=== PATIENT | male | born 1990 | race Caucasian/White ===

== ENCOUNTER 2023-04-24 16:05 | Outpatient (AMB) | payer OTHER, SELFPAY ==
--- OUTSIDE RECORDS SUMMARY | 2023-04-24 16:07 | XMS_ITS | Continuity of Care Document ---
Author Name Unknown Organization [facility] Address [address] [place] [address]- Care Team Providers Care Client Solutions Specialist Name Role Phone Damien Reyes Primary Care Physician [phone] En[id number] Date(s): 04/07/21 - 05/07/21 [facility] [address] [place] [address]- Attending Physician: Addie Guerrero Admitting Physician: Addie Guerrero Referring Physician: AdmtrAddie Allergies, Adverse Reactions, Alerts Substance Reaction Severity Status NKA Active Immunizations Given and Recorded Vaccine Date Status Refusal Reason pneumococcal 23-valent vaccine 11/28/10 Given Medications ALPRAZolam 1 mg oral tablet 1 tablet = 1 mg, By Mouth, 2 times a day, 0 Refills, Maintenance, 01/09/17 6:28:13, Tablet Start Date: 01/09/17 Status: Ordered gabapentin 300 mg oral capsule 300 mg, 1, capsule, By Mouth, 3 times a day, # 21 capsule, Refills 0, Tot. Refills 0, Maintenance, 03/18/21 10:59:00 EDT, Route to Pharmacy Electronically, [facility], Partial fill uponpatient request if the prescription is for a schedu... Start Date: 03/18/21 Stop Date: 03/25/21 Status: Ordered Methadone = 83 mg, By Mouth, 0 Refills, Maintenance, 03/19/21 12:22:00 EDT, Partial fill upon patient requestif the prescription is for a schedule II opioid drug. Start Date: 03/19/21 Status: Ordered oxyCODONE 15 mg oral tablet 1 tablet = 15 mg, By Mouth, Every 6 hours, 0 Refills, Maintenance, 03/19/21 12:21:00 EDT, Partial fill upon patient request if the prescription is for a schedule II opioid drug. Start Date: 03/19/21 Status: Ordered Tums 500 = 1,250 mg, 3 times a day, PRN Indigestion, 0 Refills, Maintenance, 06/17/15 12:57:24 Start Date: 06/17/15 Status: Ordered Wheeled walker with a left platform attachemnt Wheeled walker with a left platform attachemnt, See Instructions, # 1 each, Refills 0, Tot. Refills0, Maintenance, wheeled walker with a left platform attachemnt, 03/18/21 10:42:00 EDT, Supply Start Date: 03/18/21 Status: Ordered Problem List Condition Effective Dates Status Health Status Inform ant Chronic pain(Confirmed) Active Depressive disorder(Confirmed) Active Prescription drug discontinued(Confirmed) Active History of surgery(Confirmed) 1 Active History of surgery(Confirmed) 2 Active Hip pain(Confirmed) 3 Active History of heroin use(Confirmed) Active Depression with anxiety(Confirmed) Active Nicotine use disorder(Confirmed) Active Lower extremity pain(Confirmed) Active 1PROCEDURE DATE: 11/26/2010 PREOPERATIVE DIAGNOSIS: Left femoral shaft fracture. POSTOPERATIVE DIAGNOSIS: Left femoral shaft fracture. PROCEDURE PERFORMED: Intramedullary nailing, left femoral shaft fracture. SURGEON: Mary Gamez M.D 2PROCEDURE DATE: 11/28/2010 PREOPERATIVE DIAGNOSIS: Right acetabular fracture, posterior wall. POSTOPERATIVE DIAGNOSIS: Right acetabular fracture, posterior wall. PROCEDURE PERFORMED: Open reduction and internal fixation, right acetabular posterior wall fracture. SURGEON: Mary Gamez M.D. 3Right-sided Social History Social History Type Response Smoking Status Current every day sm rejier; Type: Cigarettes; Tobacco use times per day: 1 PPD; entered on: 07/12/13 Sex
--- OUTSIDE RECORDS SUMMARY | 2023-04-24 16:07 | XMS_ITS | Continuity of Care Document ---
Author Name Unknown Organization [facility] Address [address] [place] [address]- Care Team Providers Care School Secretary Name Role Phone Damien Reyes Primary Care Physician [facility] Date(s): 09/20/19 - 09/20/[address] [address]- [facility] [place] [facility] Discharge Disposition: A-D/C Home Attending Physician: Brett Lainez DO Admitting Physician: Brett Lainez DO Referring Physician: Not on Staff, Referring MD Allergies, Adverse Reactions, Alerts Substance Reaction Severity Status NKA Active Immunizations Given and Recorded Vaccine Date Status Refusal Reason pneumococcal 23-valent vaccine 11/28/10 Given Medications Advil 200 mg oral tablet 1 tablet = 200 mg, By Mouth, Every 6 hours, 0 Refills, Maintenance, 06/17/15 12:57:35 Start Date: 06/17/15 Status: Ordered ALPRAZolam 1 mg oral tablet 1 tablet = 1 mg, By Mouth, 2 times a day, 0 Refills, Maintenance, 01/09/17 6:28:13, Tablet Start Date: 01/09/17 Status: Ordered clonazePAM 1 mg oral tablet 1 tablet = 1 mg, By Mouth, 4 times a day, PRN Anxiety, 0 Refills, Maintenance, 06/01/15 9:57:01 Start Date: 06/01/15 Status: Ordered cloNIDine 0.1 mg oral tablet 0.1 mg, By Mouth, 4 times a day, # 30 tablet, Refills 0, Maintenance, 01/09/17 6:32:04 Start Date: 01/09/17 Status: Ordered cloNIDine 0.1 mg/12 hr oral tablet, extended release 1 tablet = 0.1 mg, By Mouth, Daily at bedtime, 0 Refills, Maintenance, 01/09/17 6:28:22 Start Date: 01/09/17 Status: Ordered Colace sodium 100 mg oral capsule 100 mg, 1, capsule, By Mouth, 2 times a day, PRN, # 4 capsule, Refills 0, Tot. Refills 0, Maintenance, for constipation, 01/09/17 10:19:01, Print Requisition Start Date: 01/09/17 Stop Date: 01/11/17 Status: Ordered gabapentin 300 mg oral capsule 1 capsule = 300 mg, By Mouth, 3 times a day, 0 Refills, Maintenance, 06/02/15 11:13:44 Start Date: 06/02/15 Status: Ordered ibuprofen 400 mg oral tablet 1 tablet = 400 mg, By Mouth, Every 4 hours, PRN for pain, # 60 tablet, 0 Refills, Maintenance, 05/10/15 1:30:03, Tablet Start Date: 05/10/15 Status: Ordered Paxil 40 mg oral tablet 1 tablet = 40 mg, By Mouth, Daily, # 30 tablet, 0 Refills, Maintenance, 06/01/15 9:58:12, Tablet Start Date: 06/01/15 Status: Ordered Tums 500 = 1,250 mg, 3 times a day, PRN Indigestion, 0 Refills, Maintenance, 06/17/15 12:57:24 Start Date: 06/17/15 Status: Ordered Zofran 4 mg oral tablet 1 tablet = 4 mg, By Mouth, Every 8 hours, PRN Nausea & Vomiting, # 10 tablet, 0 Refills, Maintenance, 01/09/17 10:18:33, Tablet Start Date: 01/09/17 Status: Ordered Problem List Condition Effective Dates [...] wall fracture. SURGEON: Mary Gamez M.D. 3Right-sided Vital Signs Most recent to oldest [Reference Range]: 1 2 3 Oxygen Saturation [94-100 %] 100 % (09/20/19 9:45 AM) 100 % (09/20/19 6:27 AM) Pulse Rate [55-90 bpm] 116 bpm *H* (09/20/19 9:45 AM) 115 bpm *H* (09/20/19 6:27 AM) Blood Pressure [90-138/55-84 mm Hg] 177/100mm Hg *H* (09/20/19 9:45 AM) 154/85mm Hg *H* (09/20/19 6:27 AM) Respiratory Rate [16-30 br/min] 22 br/min (09/20/19 9:45 AM) 22 br/min (09/20/19 9:43 AM) 26 br/min (09/20/19 8:50 AM) Temperature [96.8-100.4 DegF] 97.6 DegF (09/20/19 6:27 AM) Mode of Delivery (Oxygen) Room air (09/20/19 9:45 AM) Room air (09/20/19 6:27 AM) Blood pressure sites Arm, right (09/20/19 9:45 AM) Arm, left (09/20/19 6:27 AM) Temperature Route Oral (09/20/19 6:27 AM) Social History Social History Type Response Smoking Status Current every day cornelio zavaleta; Type: Cigarettes; Tobacco use times per day: 1 PPD; entered on: 07/12/13 Sex
--- OUTSIDE RECORDS SUMMARY | 2023-04-24 16:07 | XMS_ITS | Continuity of Care Document ---
Author Name Unknown Organization [facility] laura Address [address] [place] [address] [address] [place] [address]- Care Team Providers Care Manager Financial Services Name Role Phone Damien Reyes Primary Care Physician [facility] Date(s): 04/15/21 - 04/22/21 [facility] [address] [place] [address]- Attending Physician: Yrn Mack MD Allergies, Adverse Reactions, Alerts Substance Reaction [...] 03/18/21 10:59:00 EDT, Route to Pharmacy Electronically, [facility], Partial fill uponpatient request if the [...] Most recent to oldest [Reference Range]: 1 Height 170 cm (04/15/21 11:03 AM) Weight 76 kg (04/15/21 11:03 AM) Body Mass Index [18.5-24.99] 26.3 *H* (04/15/21 11:03 AM) Temperature [96.8-100.4 DegF] 98.4 DegF (04/15/21 11:03 AM) Social History Social History Type Response Smoking Status Current every day cornelio zavaleta; Type: Cigarettes; Tobacco use times per day: 1 PPD; entered on: 07/12/13 Sex
--- OUTSIDE RECORDS SUMMARY | 2023-04-24 16:07 | XMS_ITS | Continuity of Care Document ---
Author Name Unknown Organization [facility] Address [address] [place] [address]- Care Team Providers Care Bakery Worker Name Role Phone Winston Hernandez MD Primary Care Physician [phone] [place] [facility] 11/26/21 - 11/26/[address] [address]- Encounter Diagnosis Hypercalcemia(Final) - 11/26/21 Dehydration(Final) - 11/26/21 Discharge Disposition: A-D/C Home Attending Physician: Venkata Pena MD Admitting Physician: Venkata Pena MD Referring Physician: Not on Staff, Referring MD Allergies, Adverse Reactions, Alerts No Known Allergies Immunizations Given and Recorded Vaccine Date Status [...] 03/18/21 10:59:00 EDT, Route to Pharmacy Electronically, [facility], Partial fill uponpatient request [...] 3 Oxygen Saturation [94-100 %] 100 % (11/26/21 6:17 PM) 100 % (11/26/21 4:51 PM) 100 % (11/26/21 3:25 PM) Pulse Rate [55-90 bpm] 78 bpm (11/26/21 6:17 PM) 80 bpm (11/26/21 4:51 PM) 85 bpm (11/26/21 3:25 PM) Blood Pressure [90-138/55-84 mm Hg] 130/70mm Hg (11/26/21 6:17 PM) 125/63mm Hg (11/26/21 4:51 PM) 133/63mm Hg (11/26/21 3:31 PM) Respiratory Rate [16-30 br/min] 18 br/min (11/26/21 6:17 PM) 18 br/min (11/26/21 4:51 PM) 18 br/min (11/26/21 3:25 PM) Temperature [96.8-100.4 DegF] 97.8 DegF (11/26/21 3:31 PM) Mode of Delivery (Oxygen) Room air (11/26/21 6:17 PM) Room air (11/26/21 4:51 PM) Room air (11/26/21 3:25 PM) Blood pressure sites Arm, right (11/26/21 6:17 PM) Arm, right (11/26/21 4:51 PM) Arm, right (11/26/21 3:31 PM) Temperature Route Oral (11/26/21 3:31 PM) Social History Social History Type Response Smoking Status Current every day cornelio zavaleta; Type: Cigarettes; Tobacco use times per day: 1 PPD; entered on: 07/12/13 Sex
--- OUTSIDE RECORDS SUMMARY | 2023-04-24 16:07 | XMS_ITS | Continuity of Care Document ---
Author Name Unknown Organization [facility] Address [address] [place] [address]- Care Team Providers Care Clerk Rating Name Role Phone Damien Reyes Primary Care Physician [phone] Encounter [facility] Date(s): 07/06/22 - 08/05/22 [facility] [address] [place] [address]- Attending Physician: Addie Guerrero Admitting Physician: Addie Guerrero Referring Physician: Admtr, Cecilio8 Allergies, Adverse Reactions, Alerts No Known Allergies [...] 03/18/21 10:59:00 EDT, Route to Pharmacy Electronically, [facility], Partial fill uponpatient request if the [...] Date: 03/18/21 Status: Ordered Problem List Condition Confirmation Course Effective Dates Status Health St atus Informant Chronic pain Confirmed Active Depressive disorder Confirmed Active Prescription drug discontinued Confirmed Active History of surgery 1 Confirmed Active History of surgery 2 Confirmed Active Hip pain 3 Confirmed Active History of heroin use Confirmed Active Depression with anxiety Confirmed Active Nicotine use disorder Confirmed Active Lower extremity pain Confirmed Active 1PROCEDURE DATE: 11/26/2010 PREOPERATIVE DIAGNOSIS: Left [...] Response Smoking Status Current every day sm oker; Type: Cigarettes; Tobacco use times per day: 1 PPD; entered on: 07/12/13 Sex Patient Care team information Care Team Personnel Name: Damien Reyes Position: Reference Physician Member Role: PCP Address: Address: [address] [place] [address]- Care Team Related Persons Name: GUILLE RODRIGUEZ Address: home [address] [place] [address] Name: DESTINEE VARGAS Address: home [address] [place] [address] Name: DAVIDA VARGAS Address: home [address] [address]
--- OUTSIDE RECORDS SUMMARY | 2023-04-24 16:07 | XMS_ITS | Continuity of Care Document ---
Author Name Unknown Organization [facility] Arsal[facility] laura Address [address] [place] [address] [address] [place] [address]- Care Team Providers Care Manager Of Selection And Assessment Name Role Phone Damien Reyes Primary Care Physician [phone] [facility]counter [facility] Date(s): 04/15/21 - 06/12/21 [facility] [address] [place], [place] [address] Attending Physician: Padmini Jack Allergies, Adverse Reactions, Alerts Substance Reaction Severity [...]
--- OUTSIDE RECORDS SUMMARY | 2023-04-24 16:07 | XMS_ITS | Continuity of Care Document ---
Author Name Unknown Organization [facility] laura Address [address] [place] [address] [address] [place] [address]- Care Team Providers Care Body Hanger Name Role Phone Damien Reyes Primary Care Physician [facility]counter [facility] Date(s): 03/18/21 - 05/05/21 [facility] [address] [place], [place] [address] Attending Physician: Yrn Mack MD Referring Physician: Damien Reyes Allergies, Adverse Reactions, Alerts Substance Reaction Severity [...] 03/18/21 10:59:00 EDT, Route to Pharmacy Electronically, [facility], Partial fill uponpatient request [...]
--- OUTSIDE RECORDS SUMMARY | 2023-04-24 16:07 | XMS_ITS | Continuity of Care Document ---
Author Name Unknown Organization [facility] Address [address] [place] [address]- Care Team Providers Care Pony Edger Name Role Phone Damien Reyes Primary Care Physician En[place] [facility] [id number] Date(s): 02/03/21 - 05/07/21 [facility] [address] [place] [address]- Attending Physician: Not on Staff, Attending MD Admitting Physician: Not on Staff, Admitting MD Referring Physician: Damien Reyes Allergies, Adverse [...] 03/18/21 10:59:00 EDT, Route to Pharmacy Electronically, [facility], Partial fill uponpatient request if the [...] Response Smoking Status Current every day sm waqar; Type: Cigarettes; Tobacco use times per day: 1 PPD; entered on: 07/12/13 Sex
--- OUTSIDE RECORDS SUMMARY | 2023-04-24 16:07 | XMS_ITS | Continuity of Care Document ---
Author Name Unknown Organization [facility] Arsal[facility] laura Address [address] [place] [address] [address] [place] [address]- Care Team Providers Care Infection Prevention Specialist Name Role Phone Damien Reyes Primary Care Physician Encounter [facility] Date(s): 04/15/21 - 06/11/21 [facility] [address] [place], [place] [address] Attending Physician: Yrn Mack MD Referring Physician: [...] 03/18/21 10:59:00 EDT, Route to Pharmacy Electronically, [facility], Partial fill uponpatient request [...]
--- OUTSIDE RECORDS SUMMARY | 2023-04-24 16:07 | XMS_ITS | Continuity of Care Document ---
Author Name Unknown Organization [facility] Arsalan laura Address [address] [place] [address] [address] [place] [address]- Care Team Providers Care Underground Supervisor Name Role Phone Damien Reyes Primary Care Physician [phone] Encounter [facility] Date(s): 03/22/21 - 04/21/21 [facility] [address] [place] [address]- Allergies, Adverse Reactions, Alerts Substance Reaction Severity [...] 03/18/21 10:59:00 EDT, Route to Pharmacy Electronically, [facility], Partial fill uponpatient request [...]
--- OUTSIDE RECORDS SUMMARY | 2023-04-24 16:07 | XMS_ITS | Continuity of Care Document ---
Author Name Unknown Organization [facility] laura Address [address] [place] [address] [address] [place] [address]- Care Team Providers Care Slat Basket Maker Helper Name Role Phone Damien Reyes Primary Care Physician [phone] Encounter [facility] Date(s): 03/29/21 - 04/28/21 [facility] [address] [place] [address]- Allergies, Adverse Reactions, Alerts Substance Reaction Severity [...] 03/18/21 10:59:00 EDT, Route to Pharmacy Electronically, [facility], Partial fill uponpatient request if [...]
--- OUTSIDE RECORDS SUMMARY | 2023-04-24 16:07 | XMS_ITS | Continuity of Care Document ---
Author Name Unknown Organization [facility] Arsal[facility] laura Address [address] [place] [address] [address] [place] [address]- Care Team Providers Care Personnel Assistant Name Role Phone Damien Reyes Primary Care Physician [phone] Encounter [facility] Date(s): 03/19/21 - 04/18/21 [facility] [address] [place] [address]- Attending Physician: Addie Guerrero Admitting Physician: AdmtrAddie Referring Physician: Admtr, Ar8 Allergies, Adverse Reactions, Alerts Substance Reaction Severity [...] 03/18/21 10:59:00 EDT, Route to Pharmacy Electronically, [facility], Partial fill uponpatient request [...]
--- OUTSIDE RECORDS SUMMARY | 2023-04-24 16:07 | XMS_ITS | Continuity of Care Document ---
Author Name Unknown Organization [facility] Address [address] [place] [address]- Care Team Providers Care Sanitary Napkin Machine Tender Name Role Phone Damien Reyes Primary Care Physician Encounter [facility] Date(s): 06/22/22 - 08/05/22 [facility] [address] [place] [address]- Attending Physician: Not on Staff, Attending MD Referring Physician: David CHAUDHARY, Winston [place] Allergies, Adverse Reactions, Alerts No Known Allergies [...] 03/18/21 10:59:00 EDT, Route to Pharmacy Electronically, [facility], Partial fill uponpatient request if the [...] Physician Member Role: PCP Address: Address[address] [place] [address]- Care Team Related Persons Name: GUILLE RODRIGUEZ Address: home [address] [place] [address] Name: DESTINEE VARGAS Address: home [address] [place] [address] Name: DAVIDA VARGAS Address: [address] [address]
--- OUTSIDE RECORDS SUMMARY | 2023-04-24 16:07 | XMS_ITS | Continuity of Care Document ---
Author Name Unknown Organization [facility] Arsal[facility] laura Address [address] [place] [address] [address] [place] [address]- Care Team Providers Care Utility Worker [place] Name Role Phone Damien Reyes Primary Care Physician En[place] [facility] Date(s): 05/12/21 - 06/11/21 [facility] [address] [place], [place] [email or web address] Attending Physician: AdmAddie cross Admitting Physician: AdmtrAddie Referring Physician: Admtr, Ar8 [...] 03/18/21 10:59:00 EDT, Route to Pharmacy Electronically, [facility], Partial fill uponpatient request [...]
--- OUTSIDE RECORDS SUMMARY | 2023-04-24 16:07 | XMS_ITS | Continuity of Care Document ---
Author Name Unknown Organization [facility] Arsal[facility] laura Address [address] [place] [address] [address] [place] [address]- Care Team Providers Care Sales Representative Womens Health Name Role Phone Damien Reyes Primary Care Physician [facility]counter [facility] Date(s): 03/17/21 - 04/18/21 [facility] [address] [place], [place] [address] Attending Physician: Yrn Mack MD Referring Physician: [...] 03/18/21 10:59:00 EDT, Route to Pharmacy Electronically, [facility], Partial fill uponpatient request if [...]
--- OUTSIDE RECORDS SUMMARY | 2023-04-24 16:07 | XMS_ITS | Continuity of Care Document ---
Author Name Unknown Organization [facility] ter Address [address] [place] [id number] Care Team Providers Care Group Art Supervisor Name Role Phone Damien Reyes Primary Care Physician En[place] [facility] [place](s[place] 03/17/21 - 03/18/[address] [id number]- Discharge Disposition: A-D/C Home Attending Physician: Fide Rodríguez MD Admitting Physician: Fide Rodríguez MD Referring Physician: Not on Staff, Referring MD Allergies, Adverse Reactions, Alerts Substance Reaction Severity Status NKA Active Immunizations Given and Recorded Vaccine Date Status Refusal Reason pneumococcal 23-valent vaccine 11/28/10 Given Medications acetaminophen 325 mg oral tablet 975 mg, 3, tablet, By Mouth, Every 6 hours, for 7 days, # 84 tablet, Refills 0, Tot. Refills 0, Acute 03/25/21 10:59:00 EDT, 03/18/21 10:59:00 EDT, Route to Pharmacy Electronically, [facility], Partial fill upon patient request if the pr... Start Date: 03/18/21 Stop Date: 03/25/21 Status: Ordered Advil 200 mg oral tablet 1 tablet [...] 06/02/15 11:13:44 Start Date: 06/02/15 Status: Ordered gabapentin 300 mg oral capsule 300 mg, Capsule, By Mouth, 03/18/21 9:00:00 EDT Start Date: 03/18/21 Stop Date: 03/18/21 Status: Completed gabapentin 300 mg oral capsule 300 mg, 1, capsule, By Mouth, 3 times a day, # 21 capsule, Refills 0, Tot. Refills 0, Maintenance, 03/18/21 10:59:00 EDT, Route to Pharmacy Electronically, [facility], Partial fill uponpatient request if the prescription is for a schedu... Start Date: 03/18/21 Stop Date: 03/25/21 Status: Ordered ibuprofen 400 mg oral tablet 1 tablet = 400 mg, By Mouth, Every 4 hours, PRN for pain, # 60 tablet, 0 Refills, Maintenance, 05/10/15 1:30:03, Tablet Start Date: 05/10/15 Status: Ordered ibuprofen 400 mg oral tablet 400 mg, 1, tablet, By Mouth, 3 times a day, PRN, for 5 days, # 15 tablet, Refills 0, Tot. Refills 0, Acute 03/23/21 10:59:00 EDT, Pain , Mild, 03/18/21 10:59:00 EDT, Route to Pharmacy Electronically,[facility], Partial fill upon patient... Start Date: 03/18/21 Stop Date: 03/23/21 Status: Ordered Methadone Liquid 83 mg, Solution, By Mouth, 03/18/21 11:05:00 EDT Start Date: 03/18/21 Stop Date: 03/18/21 Status: Completed Paxil 40 mg oral tablet 1 tablet [...] EDT, Supply Start Date: 03/18/21 Status: Ordered Zofran 4 mg oral tablet [...] wall fracture. SURGEON: Mary Gamez M.D. 3Right-sided Results Radiology Reports * Exam Date Time Procedure Performing Provider Status 03/17/21 5:22 PM Wrist Comp Min 3 Views Left Eliana Ham; Trent (Verified) Notes: (Wrist Comp Min 3 Views Left) Reason For Exam: Post-Reduction RESULT: Wrist Comp Min 3 Views Left Wrist Comp Min 3 Views Left Hx of Present Illness: see trauma flow sheet; Reason: Post-Reduction; Clinical Question(s): Fracture; Order Comment: pt in OR COMPARISON: None. FINDINGS: Cast material obscures bony detail. Reidentified distal radial fracture with improved alignment since the prior study. Reidentified ulnar styloid fracture. Reidentified triquetral fracture. IMPRESSION: Distal radial fracture in near-anatomic alignment. WSN: [id number] Ordering Physician: Paulina White Dictated By: Marc Card MD Dictated Date/Time: 03/17/21 5:26 pm Reviewed By: Marc Card MD Signed By: Marc Card MD Signed Date/Time: 03/17/21 5:26 pm Transcribed By: JASON Transcribed Date/Time: 03/17/21 5:23 pm * Exam Date Time Procedure Performing Provider Status 03/17/21 10:54 AM Hand Min 3 Views Left Yassine Mederos; Trent (Verified) Notes: (Hand Min 3 Views Left) Reason For Exam: Trauma RESULT: Hand Min 3 Views Left Wrist Comp Min 3 Views Left, Forearm 2 Views Left, Hand Min 3 Views Left REASON: Trauma COMPARISON: None. FINDINGS: There is a comminuted dorsally angulated intra-articular fracture of the distal radius. There is a mildly displaced ulnar styloid fracture. There is linear lucency through the triquetrum with a smallbone fragment dorsal to the carpus on the lateral view. No other evidence of acute fracture or dislocation. Normal alignment of the elbow. Soft tissue swelling around the wrist. IMPRESSION: 1. Comminuted dorsally angulated intra-articular distal radius fracture. 2. Mildly displaced ulnar styloid fracture. 3. Triquetral avulsion fracture. WSN: [id number] Ordering Physician: Zane Mckeon Dictated By: Woodrow Flores MD Dictated Date/Time: 03/17/21 10:58 a Reviewed By: Woodrow Flores MD Signed By: Woodrow Flores MD Signed Date/Time: 03/17/21 10:58 am Transcribed By: JASON Transcribed Date/Time: 03/17/21 10:55 am * Exam Date Time Procedure Performing Provider Status 03/17/21 10:54 AM Forearm 2 Views Left Laura Mederos ; Trent (Verified) Notes: (Forearm 2 Views Left) Reason For Exam: Trauma RESULT: Forearm 2 Views Left Wrist Comp Min 3 Views Left, Forearm 2 Views Left, Hand Min 3 Views Left REASON: Trauma COMPARISON: None. FINDINGS: There is a comminuted dorsally angulated intra-articular fracture of the distal radius. There is a mildly displaced ulnar styloid fracture. There is linear lucency through the triquetrum with a smallbone fragment dorsal to the carpus on the lateral view. No other evidence of acute fracture or dislocation. Normal alignment of the elbow. Soft tissue swelling around the wrist. IMPRESSION: 1. Comminuted dorsally angulated intra-articular distal radius fracture. 2. Mildly displaced ulnar styloid fracture. 3. Triquetral avulsion fracture. WSN: [id number] Ordering Physician: Zane Mckeon Dictated By: Woodrow Flores MD Dictated Date/Time: 03/17/21 10:58 a Reviewed By: Woodrow Flores MD Signed By: Woodrow Flores MD Signed Date/Time: 03/17/21 10:58 am Transcribed By: JASON Transcribed Date/Time: 03/17/21 10:55 am * Exam Date Time Procedure Performing Provider Status 03/17/21 10:54 AM Wrist Comp Min 3 Views Left Laura Mederos; Auth (Verified) Notes: (Wrist Comp Min 3 Views Left) Reason For Exam: Trauma RESULT: Wrist Comp Min 3 Views Left Wrist Comp Min 3 Views Left, Forearm 2 Views Left, Hand Min 3 Views Left REASON: Trauma COMPARISON: None. FINDINGS: There is a comminuted dorsally angulated intra-articular fracture of the distal radius. There is a mildly displaced ulnar styloid fracture. There is linear lucency through the triquetrum with a smallbone fragment dorsal to the carpus on the lateral view. No other evidence of acute fracture or dislocation. Normal alignment of the elbow. Soft tissue swelling around the wrist. IMPRESSION: 1. Comminuted dorsally angulated intra-articular distal radius fracture. 2. Mildly displaced ulnar styloid fracture. 3. Triquetral avulsion fracture. WSN: [id number] Ordering Physician: Zane Mckeon Dictated By: Woodrow Flores MD Dictated Date/Time: 03/17/21 10:58 a Reviewed By: Woodrow Flores MD Signed By: Woodrow Flores MD Signed Date/Time: 03/17/21 10:58 am Transcribed By: JASON Transcribed Date/Time: 03/17/21 10:55 am * Exam Date Time Procedure Performing Provider Status 03/17/21 10:21 AM Pelvis 1 or 2 Views Laura Art; Auth (Verified) Notes: (Pelvis 1 or 2 Views) Reason For Exam: Trauma RESULT: Pelvis 1 or 2 Views Pelvis 1 or 2 Views Reason: Trauma; Clinical Question(s): Fracture COMPARISON: None. FINDINGS: Right acetabular hardware. No evidence of hardware complication. Left femoral intramedullary faith. No evidence of hardware complication. SI joints and symphysis pubis are intact. No evidence of acute fracture. No evidence of dislocation. IMPRESSION: Right acetabular and left femoral hardware. No evidence of acute fracture or dislocation WSN: [id number] Ordering Physician: Zane Mckeon Dictated By: Jeremias Lobato MD Dictated Date/Time: 03/17/21 10:23 a Reviewed By: Jeremias Lobato MD Signed By: Jeremias Lobato MD Signed Date/Time: 03/17/21 10:23 am Transcribed By: JASON Transcribed Date/Time: 03/17/21 10:23 am * Exam Date Time Procedure Performing Provider Status 03/17/21 10:21 AM Chest Portable Laura Art; Auth (Verified) Notes: (Chest Portable) Reason For Exam: Other: RESULT: Chest Portable Chest Portable Reason: Other:; Clinical Question(s): Trauma COMPARISON: None. FINDINGS: No acute cardiopulmonary process IMPRESSION: No acute abnormality. Normal exam WSN: [id number] Ordering Physician: Zane Mckeon Dictated By: Jeremias Lobato MD Dictated Date/Time: 03/17/21 10:22 a Reviewed By: Jeremias Lobato MD Signed By: Jeremias Lobato MD Signed Date/Time: 03/17/21 10:22 am Transcribed By: JASON Transcribed Date/Time: 03/17/21 10:22 am Vital Signs Most recent to oldest [Reference Range]: 1 2 3 Oxygen Saturation [94-100 %] 100 % (03/18/21 9:42 AM) 100 % (03/18/21 6:15 AM) 99 % (03/18/21 4:05 AM) Pulse Rate [55-90 bpm] 84 bpm (03/18/21 9:42 AM) 73 bpm (03/18/21 6:15 AM) 75 bpm (03/18/21 4:05 AM) Blood Pressure [90-138/55-84 mm Hg] 118/81mm Hg (03/18/21 9:42 AM) 113/66mm Hg (03/18/21 6:15 AM) 123/60mm Hg (03/18/21 4:05 AM) Respiratory Rate [16-30 br/min] 16 br/min (03/18/21 10:59 AM) 16 br/min (03/18/21 10:58 AM) 16 br/min (03/18/21 9:42 AM) Temperature [96.8-100.4 DegF] 97.9 DegF (03/18/21 9:42 AM) 97.9 DegF (03/18/21 4:05 AM) 98.0 DegF (03/17/21 4:58 PM) Mode of Delivery (Oxygen) Room air (03/18/21 9:42 AM) Room air (03/18/21 6:15 AM) Room air (03/18/21 4:05 AM) Temperature Route Oral (03/18/21 9:42 AM) Oral (03/18/21 4:05 AM) Oral (03/17/21 4:58 PM) Social History Social History Type Response Smoking Status Current every day cornelio zavaleta; Type: Cigarettes; Tobacco use times per day: 1 PPD; entered on: 07/12/13 Sex
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
[2023-04-24 16:10] VITALS: BP 132/90; PULSE 93; O2SAT 97; BMI 25.4
== END 2023-04-24 16:48 | disposition home or self-care (01) ==
LOC: HO.HMGH 16:05
PROVIDERS: PCP Internal Medicine; Visit Provider Internal Medicine
DX: R10.2 Pelvic and perineal pain (principal); F11.11 Opioid abuse, in remission; F33.9 Major depressive disorder, recurrent, unspecified; K21.9 Gastro-esophageal reflux disease without esophagitis; G89.29 Other chronic pain; F17.210 Nicotine dependence, cigarettes, uncomplicated; Z79.899 Other long term (current) drug therapy; S62.102D Fracture of unspecified carpal bone, left wrist, subsequent encounter for fracture with routine healing; F41.9 Anxiety disorder, unspecified; E66.3 Overweight
CPT/HCPCS: 99214

== ENCOUNTER 2023-05-19 10:08 | Outpatient (AMB) | payer OTHER, SELFPAY ==
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
[2023-05-19 10:21] VITALS: BP 144/98; PULSE 109; RESP 18; O2SAT 99; BMI 26.5
== END 2023-05-19 10:49 | disposition home or self-care (01) ==
PROVIDERS: PCP Internal Medicine; Referring Provider Internal Medicine; Visit Provider Registered Nurse Emergency
DX: R10.2 Pelvic and perineal pain (principal); G89.29 Other chronic pain; M25.551 Pain in right hip; M25.552 Pain in left hip; M47.816 Spondylosis without myelopathy or radiculopathy, lumbar region; M54.50 Low back pain, unspecified
CPT/HCPCS: 99204

== ENCOUNTER → 2023-05-19 10:08 | Outpatient (BNVA) | payer OTHER, SELFPAY | PROVIDERS: PCP Internal Medicine; Referring Provider Internal Medicine; Visit Provider Registered Nurse Emergency | DX: M25.551 Pain in right hip (principal); M25.552 Pain in left hip; M47.816 Spondylosis without myelopathy or radiculopathy, lumbar region; R10.2 Pelvic and perineal pain; G89.29 Other chronic pain | CPT/HCPCS: 99202 ==

== ENCOUNTER 2023-05-23 12:38 | Outpatient (AMB) | payer OTHER, SELFPAY ==
[2023-05-23 12:40] VITALS: BP 132/80; PULSE 113; O2SAT 97; BMI 26.8
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
== END 2023-05-23 14:06 | disposition home or self-care (01) ==
PROVIDERS: PCP Internal Medicine; Visit Provider Internal Medicine
DX: R10.2 Pelvic and perineal pain (principal); G89.29 Other chronic pain; S62.102D Fracture of unspecified carpal bone, left wrist, subsequent encounter for fracture with routine healing; K21.9 Gastro-esophageal reflux disease without esophagitis; F11.11 Opioid abuse, in remission; F41.9 Anxiety disorder, unspecified; F33.9 Major depressive disorder, recurrent, unspecified; E66.3 Overweight
CPT/HCPCS: 99499

== ENCOUNTER 2023-05-23 14:20 | Outpatient (REF) | payer OTHER, SELFPAY ==
[2023-05-23 15:14] LABS: Amphetamine Screen Urine Not Detected (Not Detect); Barbiturates, Urine Not Detected (Not Detect); Benzodiazepines Screen Urine POSITIVE (Not Detect); Cannabinoid Screen Urine Not Detected (Not Detect); Cocaine Screen Urine Not Detected (Not Detect); Fentanyl, urine POSITIVE (Not Detect); Opiate Screen Urine Not Detected (Not Detect); Phencyclidine Screen Urine Not Detected (Not Detect)
[2023-05-29 09:17] LABS: Codeine, Ur NEGATIVE; Hydrocodone, Ur NEGATIVE; Oxycodone, Ur NEGATIVE
[2023-05-29 09:18] LABS: Hydromorphone, Ur NEGATIVE; Morphine, Ur NEGATIVE; Norhydrocodone, Ur NEGATIVE; Noroxycodone, Ur NEGATIVE; Oxymorphone, Ur NEGATIVE
== END 2023-05-23 14:21 | disposition home or self-care (01) ==
LOC: HO.LNP 14:20
PROVIDERS: Visit Provider Internal Medicine
DX: R10.2 Pelvic and perineal pain (principal); G89.29 Other chronic pain; Z51.81 Encounter for therapeutic drug level monitoring; F11.90 Opioid use, unspecified, uncomplicated
CPT/HCPCS: 80307; 80365; G0480

== ENCOUNTER 2023-09-29 17:35 | Emergency (ER) | payer OTHER, SELFPAY ==
[2023-09-29 17:42] VITALS: BP 151/89; PULSE 89; RESP 20; TEMP 37.2; O2SAT 95; BMI 28.9
--- NOTE | 2023-09-29 18:06 | ED.EYEPROB ---
HPI - Eye Problem General Chief complaint: Eye Problems Stated complaint: FB in R eye/painful Time Seen by Provider: 09/29/23 18:05 Source: patient Mode of arrival: ambulatory Limitations: no limitations History of Present Illness HPI Narrative: Patient was cutting the wood earlier today small piece of wood chip went into his right eye since then patient is light sensitive watering from the right eye no other injury Related Data Home Medications Medication Instructions Recorded Confirmed methadone 10 mg/mL oral concentrate 60 mg PO DAILY 08/04/21 05/23/23 Previous Rx's Medication Instructions Recorded naloxone 4 mg/actuation nasal 4 mg intranasal Q2M PRN opioid 03/04/21 spray (Narcan) overdose #2 ea gabapentin 800 mg tablet 800 mg PO TID 30 days #90 tabs 10/14/22 clonidine HCl 0.2 mg tablet 0.2 mg PO BEDTIME 90 days #90 tabs 04/05/23 alprazolam 1 mg tablet 1 mg PO QID 28 days #112 tabs 09/13/23 quetiapine 100 mg tablet See Rx Instructions PO .COMPLEX 30 09/24/23 days #90 caps oxycodone 15 mg tablet 15 mg PO BID PRN pain 10 days #20 09/25/23 tabs ketorolac 0.5 % eye drops 1 drp ophthalmic (eye) QID #5 mL 09/29/23 tobramycin 0.3 % eye drops 1 drp ophthalmic-Right Q4H #5 mL 09/29/23 Allergies Allergy/AdvReac Type Severity Reaction Status Date / Time aspirin [ASPIRIN] Allergy Unknown Rash Verified 09/29/23 17:49 Review of Systems Review of Systems: Yes all other systems are reviewed and are negative [facility] Past Medical History Medical History Overweight (BMI 25.0-29.9) GERD without esophagitis History of opioid abuse Fracture of left femur (~10/2010) Depression Anxiety Chronic hip pain Surgical History History of hip surgery (~10/2010) History of left knee surgery Family History Family History Father No problems noted. Mother Chronic mental illness Social History Social History Housing: Apartment Alcohol intake: never Patient Tobacco Use Status: Current everyday Tobacco user Tobacco use type: Cigarette Cigarette Packs Per Day: 0.5 Cigarettes Per Day: 10 e-Cigarette/Vaping Use: Never Used Second Hand Smoke Exposure: Yes Advance Directives: No Advance Directives Information Provided: No service: No Current occupational status: disabled Cognitive needs: No Hearing needs: No Vision needs: No Physical Exam Vital Signs: Vital Signs: Last Vital Signs Temp 98.9 F 09/29/23 17:42 Pulse 89 09/29/23 17:42 Resp 20 09/29/23 17:42 BP 151/89 H 09/29/23 17:42 Pulse Ox 95 09/29/23 17:42 O2 Del Method Room Air 09/29/23 17:42 BMI result Body Mass Index 28.9 Eyes: Conjunctivae: conjunctival abnormal (Injected) right Sclerae: scleral abnormal (Inject) right Corneas: corneas abnormal (Abrasion) on the right and fluorescein used Pupils: Equal, round and reactive pupils present EOM: EOMs intact bilaterally Eyes/upper lids images: 1. : Abrasion at 10 o'clock position anterior chamber clear pupil normal no foreign body seen Neuro: Cranial nerves: Yes Equal, round and reactive pupils present Medical Decision Making Medical Decision Making MDM Narrative: Patient with right corneal abrasion felt better after tetracaine no other injuries patient was prescribed tobramycin eye drops and ketorolac Discharge Plan Discharge Clinical Impression: Corneal abrasion, right Patient Disposition: Home, Self-Care Instructions: Corneal Abrasion (ED) Additional Instructions: Local care as advised Tobramycin eye drops to avoid infection 1 drop every 4 hour in the right eye Ketorolac eyedrops for pain Symptoms should get better in next 3-5 days Prescriptions: New ketorolac 0.5 % drops 1 drp ophthalmic (eye) QID Qty: 5 0RF tobramycin 0.3 % drops 1 drp ophthalmic-Right Q4H Qty: 5 0RF No Action Narcan 4 mg/actuation spray,non-aerosol 4 mg intranasal Q2M PRN (Reason: opioid overdose) Qty: 2 0RF Rx Instructions: spray 1 dose into ONE nostril; alternate nostrils w each dose until help arrives clonidine HCl 0.2 mg tablet 0.2 mg PO BEDTIME 90 Days Qty: 90 1RF alprazolam 1 mg tablet 1 mg PO QID 28 Days Qty: 112 0RF quetiapine 100 mg tablet See Rx Instructions PO .COMPLEX 30 Days Qty: 90 1RF Rx Instructions: Take 1 tablet in AM and 2 tablets at bedtime orally; oxycodone 15 mg tablet 15 mg PO BID PRN (Reason: pain) 10 Days Qty: 20 0RF Hold Instructions: Doctor's Order methadone 10 mg/mL concentrate 60 mg PO DAILY Rx Instructions: [facility] in [place] gabapentin 800 mg tablet 800 mg PO TID 30 Days Qty: 90 3RF
[2023-09-29 18:49] VITALS: BP 136/91; PULSE 83; RESP 18; TEMP 36.8; O2SAT 97
[2023-09-29 19:19] VITALS: BP 136/91; PULSE 83; RESP 18; TEMP 36.8
[2023-09-29] MEDS: Fluorescein Sodium STRIP 1 STRIP EYE-LEFT (19:21)
[2023-09-29] MEDS: Tetracaine HCl/PF 0.5% Oph Sol 4 ML DROPS 1 DROP EYE-RIGHT (19:21)
== END 2023-09-29 19:22 | disposition home or self-care (01) ==
PROVIDERS: Emergency Provider Internal Medicine; PCP Internal Medicine
DX: S05.01XA Injury of conjunctiva and corneal abrasion without foreign body, right eye, initial encounter (principal); X58.XXXA Exposure to other specified factors, initial encounter; Y93.9 Activity, unspecified; Y92.9 Unspecified place or not applicable; Y99.9 Unspecified external cause status; H57.8A1 Foreign body sensation, right eye
CPT/HCPCS: 99282; 99283

== ENCOUNTER 2023-12-11 16:49 | Outpatient (AMB) | payer OTHER, SELFPAY ==
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
[2023-12-11 16:54] VITALS: BP 120/74; PULSE 84; O2SAT 95; BMI 28.3
== END 2023-12-11 17:19 | disposition home or self-care (01) ==
PROVIDERS: PCP Internal Medicine; Visit Provider Internal Medicine
DX: R10.2 Pelvic and perineal pain (principal); F11.11 Opioid abuse, in remission; F33.9 Major depressive disorder, recurrent, unspecified; G89.29 Other chronic pain; S62.102D Fracture of unspecified carpal bone, left wrist, subsequent encounter for fracture with routine healing; K21.9 Gastro-esophageal reflux disease without esophagitis; F41.9 Anxiety disorder, unspecified; E66.3 Overweight; F17.210 Nicotine dependence, cigarettes, uncomplicated
CPT/HCPCS: 99214

== ENCOUNTER 2024-03-27 15:54 | Outpatient (AMB) | payer OTHER, SELFPAY ==
[2024-03-27 15:57] VITALS: BP 118/72; PULSE 106; O2SAT 95; BMI 28.8
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
== END 2024-03-27 16:52 | disposition home or self-care (01) ==
PROVIDERS: PCP Internal Medicine; Visit Provider Internal Medicine
DX: R10.2 Pelvic and perineal pain (principal); F11.11 Opioid abuse, in remission; F33.9 Major depressive disorder, recurrent, unspecified; G89.29 Other chronic pain; S62.102D Fracture of unspecified carpal bone, left wrist, subsequent encounter for fracture with routine healing; K21.9 Gastro-esophageal reflux disease without esophagitis; F41.9 Anxiety disorder, unspecified; E66.3 Overweight

== ENCOUNTER → 2024-03-27 15:54 | Outpatient (BNVA) | payer OTHER, SELFPAY | PROVIDERS: PCP Internal Medicine; Visit Provider Internal Medicine | DX: R10.2 Pelvic and perineal pain (principal); G89.29 Other chronic pain; S62.102D Fracture of unspecified carpal bone, left wrist, subsequent encounter for fracture with routine healing; K21.9 Gastro-esophageal reflux disease without esophagitis; F11.11 Opioid abuse, in remission; F41.9 Anxiety disorder, unspecified; F33.9 Major depressive disorder, recurrent, unspecified; E66.3 Overweight | CPT/HCPCS: 99212 ==

== ENCOUNTER 2024-04-17 11:02 | Outpatient (AMB) | payer OTHER, SELFPAY ==
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
[2024-04-17 11:32] VITALS: BP 146/88; PULSE 86; RESP 16; O2SAT 96; BMI 28.7
== END 2024-04-17 11:52 | disposition home or self-care (01) ==
PROVIDERS: PCP Internal Medicine; Visit Provider Anesthesiology
DX: R10.2 Pelvic and perineal pain (principal); G89.29 Other chronic pain; M25.551 Pain in right hip; M25.552 Pain in left hip; M47.816 Spondylosis without myelopathy or radiculopathy, lumbar region
CPT/HCPCS: 99214

== ENCOUNTER → 2024-04-17 11:02 | Outpatient (BNVA) | payer OTHER, SELFPAY | PROVIDERS: PCP Internal Medicine; Visit Provider Anesthesiology | DX: M25.551 Pain in right hip (principal); M25.552 Pain in left hip; M47.816 Spondylosis without myelopathy or radiculopathy, lumbar region; R10.2 Pelvic and perineal pain; G89.29 Other chronic pain | CPT/HCPCS: 99212 ==

== ENCOUNTER 2024-06-24 14:20 | Outpatient (AMB) | payer OTHER, SELFPAY ==
[2024-06-24 14:21] VITALS: BP 110/84; PULSE 82; O2SAT 96; BMI 30.9
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
== END 2024-06-24 15:18 | disposition home or self-care (01) ==
PROVIDERS: PCP Internal Medicine; Visit Provider Internal Medicine
DX: R10.2 Pelvic and perineal pain (principal); F11.11 Opioid abuse, in remission; F33.9 Major depressive disorder, recurrent, unspecified; G89.29 Other chronic pain; K21.9 Gastro-esophageal reflux disease without esophagitis; F41.9 Anxiety disorder, unspecified; E66.3 Overweight

== ENCOUNTER → 2024-06-24 14:20 | Outpatient (BNVA) | payer OTHER, SELFPAY | PROVIDERS: PCP Internal Medicine; Visit Provider Internal Medicine | DX: R10.2 Pelvic and perineal pain (principal); G89.29 Other chronic pain; K21.9 Gastro-esophageal reflux disease without esophagitis; F11.11 Opioid abuse, in remission; F41.9 Anxiety disorder, unspecified; F33.9 Major depressive disorder, recurrent, unspecified; E66.3 Overweight | CPT/HCPCS: 96127; 99212 ==

== ENCOUNTER 2024-10-07 14:00 | Outpatient (AMB) | payer OTHER, SELFPAY ==
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
[2024-10-07 14:03] VITALS: BP 169/72; PULSE 91; RESP 16; O2SAT 96; BMI 30.9
--- OUTSIDE RECORDS SUMMARY | 2024-10-07 16:46 | XMS_ITS | Encounter Summary ---
Author Organization [employer] Address [address] [facility] [address] [place] [address] Care Team Providers Care Ship'S Pilot Name Role Phone Unavailable Primary Care Provider Unavailabl e Encounter Details Date Type Department Care Team (Late st Contact Info) Description 06/21/2022 Abstract [facility] [address] [facility] [place] [address] Ji Jaime, DDS [address] [place] [address] Social History Tobacco Use Types Packs/Day Years Used Date Smoking Tobacco: Never Assessed Sex and Gender Information Value Date Recorded Sex Assigned at Male 05/02/2022 10:36 AM EDT Legal Sex Male 10:36 AM EDT Gender Identity Male 05/02/2022 10:36 AM EDT Sexual Orientation Straight 05/02/2022 10 :36 AM EDT COVID-19 Exposure Response Date Recorded In the last 10 days, have yo u been in contact with someone who was confirmed or suspected to have Coronavirus/COVID-19? No / Unsure 06/23/2022 8:26 AM EST documented as of this encounter Plan of Treatment Not on file documented as of this encounter Procedures Procedure Name Priority Date/Time Associated Diagnosis Comments 28 EXTRACTION Routine 06/21/2022 12:00 AM EST 29 EXTRACTION Routine 06/21/2022 12:00 AM EST 30 EXTRACTION Routine 06/21/2022 12:00 AM EST 31 EXTRACTION Routine 06/21/2022 12:00 AM EST 32 EXTRACTION Routine 06/21/2022 12:00 AM EST 21 EXTRACTION Routine 06/21/2022 12:00 AM EST 20 EXTRACTION Routine 06/21/2022 12:00 AM EST 19 EXTRACTION Routine 06/21/2022 12:00 AM EST 18 EXTRACTION Routine 06/21/2022 12:00 AM EST 17 EXTRACTION Routine 06/21/2022 12:00 AM EST 16 EXTRACTION Routine 06/21/2022 12:00 AM EST 15 EXTRACTION Routine 06/21/2022 12:00 AM EST 14 EXTRACTION Routine 06/21/2022 12:00 AM EST 13 EXTRACTION Routine 06/21/2022 12:00 AM EST 12 EXTRACTION Routine 06/21/2022 12:00 AM EST 11 EXTRACTION Routine 06/21/2022 12:00 AM EST 10 EXTRACTION Routine 06/21/2022 12:00 AM EST 9 EXTRACTION Routine 06/21/2022 12:00 AM EST 8 EXTRACTION Routine 06/21/2022 12:00 AM EST 7 EXTRACTION Routine 06/21/2022 12:00 AM EST 6 EXTRACTION Routine 06/21/2022 12:00 AM EST 5 EXTRACTION Routine 06/21/2022 12:00 AM EST 4 EXTRACTION Routine 06/21/2022 12:00 AM EST 3 EXTRACTION Routine 06/21/2022 12:00 AM EST 2 EXTRACTION Routine 06/21/2022 12:00 AM EST 1 EXTRACTION Routine 06/21/2022 12:00 AM EST documented in this encounter Visit Diagnoses Not on filedocumented in this encounter
--- OUTSIDE RECORDS SUMMARY | 2024-10-07 16:46 | XMS_ITS | Encounter Summary ---
Author Organization [employer] Address [address] [place] [address] [address] [place] [address] Care Team Providers Care Deck Engineer Name Role Phone Unavailable Primary Care Provider Unavailabl e Encounter Details Date Type Department Care Team (Latest Contact Info) Description 03/10/2022 Abstract [facility] Dental, Provider, DDS Social History Tobacco Use Types Packs/Day Years Used Date Smoking Tobacco: Never Assessed Sex and Gender Information Value Date Recorded Sex Assigned at Male 05/02/2022 10:36 AM EDT Legal Sex Male 10:36 AM EDT Gender Identity Male 05/02/2022 10:36 AM EDT Sexual Orientation Straight 05/02/2022 10 :36 AM EDT documented as of this encounter Plan of Treatment Not on file documented as of this encounter Visit Diagnoses Not on filedocumented in this encounter
--- OUTSIDE RECORDS SUMMARY | 2024-10-07 16:46 | XMS_ITS | Clinical Summary ---
Author Organization [facility] Address [address] [place] [address] Care Team Providers Care Auto Hauler Name Role Phone Unavailable Primary Care Provider Unavailabl e Social History Tobacco Use Types Packs/Day Years Used Date Smoking Tobacco: Never Assessed Sex and Gender Information Value Date Recorded Sex Assigned at Not on file Legal Sex Male 3:12 AM EST Gender Identity Not on file Sexual Orientation Not on file Plan of Treatment Health Maintenance Due Date Last Done Comments DTaP,Tdap,and Td Vaccines (1 - Tdap) 02/02/2008 Hepatitis B Vaccines (1 of 3 - 19+ 3-dose series) 02/02/2008 COVID-19 Vaccine (2023-2 5 season) 2024 Influenza Vaccine (#1) 2024 HIB Vaccines Aged Out No longer eligi ble based on patient's age to complete this topic HPV Vaccines Aged Out No longer eligi ble based on patient's age to complete this topic Hepatitis A Vaccines Aged Out No long er eligible based on patient's age to complete this topic IPV Vaccines Aged Out No longer eligi ble based on patient's age to complete this topic MMR Vaccines Aged Out No longer eligi ble based on patient's age to complete this topic Meningococcal ACWY Vaccine Aged Out N o longer eligible based on patient's age to complete this topic Meningococcal B Vaccine Aged Out No l onger eligible based on patient's age to complete this topic Pneumococcal Vaccine: Pediat rics (0 to 5 Years) and At-Risk Patients (6 to 64 Years) Aged Out No longer eligible b ased on patient's age to complete this topic RSV Immunization Patients Un ari 20 months Aged Out No longer eligible b ased on patient's age to complete this topic Varicella Vaccines Aged Out No longer eligible based on patient's age to complete this topic
--- OUTSIDE RECORDS SUMMARY | 2024-10-07 16:46 | XMS_ITS | Encounter Summary ---
Author Organization [employer] Address [address] [place] [address] [address] [place] [address] Care Team Providers Care Control Room Agent Name Role Phone Unavailable Primary Care Provider Unavailabl e Encounter Details Date Type Department Care Team (Latest Contact Info) Description 05/06/2022 Abstract [facility] Dental, Provider, DDS Social [...]
--- OUTSIDE RECORDS SUMMARY | 2024-10-07 16:46 | XMS_ITS | Clinical Summary ---
Author Organization [employer] Address [address] [place] [address] [address] [place] [address] Care Team Providers Care Review Specialist Name Role Phone Unavailable Primary Care Provider Unavailabl e Allergies Active Allergy Reactions Criticality Noted Date Comments Aspirin 11/10/2017 Other reaction(s): Sore throat symptom Medications OXcarbazepine (Trileptal) 600 MG tablet Take 1 tablet by mouth every 12 (twelve) hours. Active QUEtiapine (SEROquel) 100 MG tablet Take 1 tablet by mouth every 12 (twelve) hours. Active risperiDONE (RisperDAL) 1 MG/ML oral solution Take 2 mL by mouth every 12 (twelve) hours. Active ALPRAZolam (Xanax) 1 MG tablet Take 1 tablet by mouth every 8 (eight) hours. Active naproxen sodium (Anaprox) 550 MG tablet Take 1 tablet by mouth every 12 (twelve) hours. 8 Active diazePAM (Valium) 5 MG tablet take 1 tablet (5MG) the night before appointment and take 2nd tablet one hour before procedure. 9 Active chlorhexidine (Peridex) 0.12 % solution Place 15 mL into mouth between cheek and gum every 12 (twelve) hours. 0 Active ALPRAZolam (Xanax) 2 MG tablet Take 1 tablet by mouth every 8 (eight) hours. Active cloNIDine (Catapres) 0.2 MG tablet TAKE 1 TABLET BY MOUTH DAILY AT BEDTIME FOR 30 DAYS 2 Active ibuprofen 600 MG tablet Take 1 tablet by mouth every 8 (eight) hours. 2 Active Social History Tobacco Use Types Packs/Day Years Used Date Smoking Tobacco: Every Day Cigarettes Smokeless Tobacco: Current Tobacco Cessation:Ready to Q uit: Not Asked; Counseling Given: Not Answered Sex and Gender Information Value Date Recorded Sex Assigned at Male 05/02/2022 10:36 AM EDT Legal Sex Male 10:36 AM EDT Gender Identity Male 05/02/2022 10:36 AM EDT Sexual Orientation Straight 05/02/2022 10 :36 AM EDT Plan of Treatment Health Maintenance Due Date Last Done Comments Dental Oral Exam 1989 Dental Prophylaxis 1989 Dental X-Ray: Bitewings 1989 Dental X-Ray: Full Mouth 1989 Depression Screening 1989 HIV Screening 1989 Lipid Panel 1989 SDOH Screening 1989 Alcohol/Substance Use Screening 2001 Family Planning (PISQ) 02/02/2004 Hepatitis C Screening 2007 DTaP/Tdap/Td Vaccines (1 - Tdap) 02/02/2008 Hepatitis B Vaccines (1 of 3 - 19+ 3-dose series) 02/02/2008 Pneumococcal Vaccine: Pediat rics (0 to 5 Years) and At-Risk Patients (6 to 49) Years) (2 of 2 - PCV) 11/29/2011 11/28/2010 COVID-19 Vaccine (1 - 2023-2 5 season) 2024 Influenza Vaccine (#1) 2024 Tobacco Screening 05/05/2024 05/05/2023 Zoster Vaccines (1 of 2) 2039 RSV Patients and Pa tients Aged 60 years or older (1 - 1-dose 75+ series) 02/02/2064 HIB Vaccines Aged Out No longer eligi [...] patient's age to complete this topic Meningococcal Vaccine Aged Out No sukhi jason eligible based on patient's age to complete this topic RSV under 20 months Aged Out No longe r eligible based on patient's age to complete this topic Rotavirus Vaccines Aged Out No longer eligible based on patient's age to complete this topic Insurance [place] * Guarantor: Kojo Luz Jr Account Type Relation to Patient Date of Phone Billing Address Personal/Family Self [address]
== END 2024-10-07 14:25 | disposition home or self-care (01) ==
LOC: HO.PMC 14:00
PROVIDERS: PCP Internal Medicine; Visit Provider Anesthesiology
DX: R10.2 Pelvic and perineal pain (principal); G89.29 Other chronic pain; M25.551 Pain in right hip; M25.552 Pain in left hip; M47.816 Spondylosis without myelopathy or radiculopathy, lumbar region; M54.50 Low back pain, unspecified; M46.1 Sacroiliitis, not elsewhere classified
CPT/HCPCS: 99213

== ENCOUNTER → 2024-10-07 14:00 | Outpatient (BNVA) | payer OTHER, SELFPAY | PROVIDERS: PCP Internal Medicine; Visit Provider Anesthesiology | DX: M47.816 Spondylosis without myelopathy or radiculopathy, lumbar region (principal); M25.551 Pain in right hip; M25.552 Pain in left hip; M46.1 Sacroiliitis, not elsewhere classified; R10.2 Pelvic and perineal pain; G89.29 Other chronic pain; F41.9 Anxiety disorder, unspecified | CPT/HCPCS: 99212 ==

== ENCOUNTER 2024-10-08 16:41 | Outpatient (AMB) | payer OTHER, SELFPAY ==
[2024-10-08 16:43] VITALS: BP 122/84; PULSE 79; O2SAT 98; BMI 30.7
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
--- OUTSIDE RECORDS SUMMARY | 2024-10-08 19:08 | XMS_ITS | Encounter Summary ---
Author Organization [employer] Address [address] [place] [address] [address] [place] [address] Care Team Providers Care Blankbook Forwarder Name Role Phone Unavailable Primary Care Provider [...]
--- OUTSIDE RECORDS SUMMARY | 2024-10-08 19:08 | XMS_ITS | Encounter Summary ---
Author Organization [employer] Address [address] [facility] [address] [place] [address] Care Team Providers Care Hris Administrator Name Role Phone Unavailable Primary Care Provider Unavailabl e Encounter Details Date Type Department Care Team (Late st Contact Info) Description 06/21/2022 Abstract [facility] [address] [place] [address] iJ Jaime, DDS [address] [place] [address] Social History Tobacco Use Types Packs/Day Years [...]
--- OUTSIDE RECORDS SUMMARY | 2024-10-08 19:08 | XMS_ITS | Clinical Summary ---
Author Organization [employer] Address [address] [place] [address] [address] [place] [address] Care Team Providers Care Patient Consumer Marketer Name Role Phone Unavailable Primary Care Provider [...] of Phone Billing Address Personal/Family Self [address]
--- OUTSIDE RECORDS SUMMARY | 2024-10-08 19:08 | XMS_ITS | Clinical Summary ---
Author Organization [facility] Address [address] [place] [address] Care Team Providers Care Automotive Service Management Teacher Name Role Phone Unavailable Primary Care Provider [...]
--- OUTSIDE RECORDS SUMMARY | 2024-10-08 19:08 | XMS_ITS | Encounter Summary ---
Author Organization [employer] Address [address] [place] [address] [address] [place] [address] Care Team Providers Care Bench Molder Name Role Phone Unavailable Primary Care Provider [...]
== END 2024-10-08 17:15 | disposition home or self-care (01) ==
LOC: HO.HMCH 16:41
PROVIDERS: PCP Internal Medicine; Visit Provider Internal Medicine
DX: R10.2 Pelvic and perineal pain (principal); F11.11 Opioid abuse, in remission; F33.9 Major depressive disorder, recurrent, unspecified; E66.9 Obesity, unspecified; Z68.30 Body mass index [BMI] 30.0-30.9, adult; G89.29 Other chronic pain; K21.9 Gastro-esophageal reflux disease without esophagitis; F41.9 Anxiety disorder, unspecified

== ENCOUNTER → 2024-10-08 16:41 | Outpatient (BNVA) | payer OTHER, SELFPAY | PROVIDERS: PCP Internal Medicine; Visit Provider Internal Medicine | DX: R10.2 Pelvic and perineal pain (principal); M25.559 Pain in unspecified hip; G89.29 Other chronic pain; K21.9 Gastro-esophageal reflux disease without esophagitis; F11.11 Opioid abuse, in remission; F41.9 Anxiety disorder, unspecified; F33.9 Major depressive disorder, recurrent, unspecified; E66.9 Obesity, unspecified; Z68.30 Body mass index [BMI] 30.0-30.9, adult | CPT/HCPCS: 96127; 99212 ==

== ENCOUNTER 2025-01-06 13:00 | Outpatient (RCR) | payer OTHER, SELFPAY ==
--- NOTE | 2024-12-09 13:45 | MHC.PT.EP ---
[facility] [place] Office [place] Office [place] Office [address] Diana Bello [address] [phone] F: [phone] F: [phone] F: [phone] F: [phone] Physical Therapy Plan of Care Date of Evaluation: 12/09/24 Date of Surgery: n/a Diagnosis: low back pain Assessment: Patient is a 34 year old male presenting to PT with complaints of pain in his low back. Pt reports onset of pain began 1-2 years ago due to falling form roof. He presents today with impairments in pain, muscle tightness, hip strength, core strength. 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 Pt expresses supervisor intermediates goal of reducing pain, and is motivated to work towards this in PT. Clinical presentation today is most consistent with signs and sx associated with low back pain and pt will benefit from skilled PT 2 week x 4 weeks to address the following problems and impairments noted upon evaluation: pain, muscle tightness, hip strength, core strength, soft tissue tightness. These problems limit the patient with the following functional activities: work, ADLs, bending, lifting. The prescribed treatment plan of care is medically necessary. Co-morbidities of depression, anxiety, hx L femur and pelvic fx 2010, pelvic fx R 2020 were identified and taken into considerations of plan of care. Pt was educated on HEP, role of PT, prognosis, POC. Frequency and Duration: The patient will be seen 2 x week x 4 weeks Short Term Goals: Pt will demonstrate improved hip MMT strength by 1/3 grade in 2 weeks. Pt will demonstrate less tenderness to soft tissue in 2 weeks. Pt will demonstrate ability to perform PPT with good core control in 2 weeks. [facility] Goals: Pt will demonstrate improved Nell score by 10% in 4 weeks for improved functional mobility. Pt will demonstrate ability to bend and lift with min to no pain in 4 weeks for improved tolerance to work. Treatment Plan: Modalities to reduce pain, spasms and effusion. Manual therapy to restore motion and function. Therapeutic exercise to improve strength and flexibility. Neuromuscular re-education for posture and balance. Therapeutic activities to return to functional activities of daily living. Electronically signed by: Jenni Arana, PT, DPT, ATC Please sign and return to therapist. Thank you for your referral.
--- NOTE | 2025-02-21 14:37 | MHC.PT.DC ---
[facility] [place] Office [place] Office [place] Office [address] [phone] F: [phone] F: [phone] F: [phone] F: [phone] Physical Therapy Discharge Report Diagnosis: low back pain Date of Surgery: n/a Date of Evaluation: 12/09/24 Date of Discharge: 02/21/25 Treatments to Date: 3 Cancellations to Date: 1 No Shows to Date: 1 Discharge Status: Patient Elected to Stop Discharge Summary: Plan at last visit was to leave pt chart open x 30 days. Pt has not returned during this time so we will d/c. Electronically signed by: Jenni Arana, PT, DPT, ATC Please sign and return to therapist. Thank you for your referral.
== END 2025-02-21 14:38 | disposition home or self-care (01) ==
LOC: HO.PTCHIC 13:00
PROVIDERS: PCP Internal Medicine; Visit Provider Anesthesiology
DX: M54.50 Low back pain, unspecified (principal); M25.551 Pain in right hip; M25.552 Pain in left hip; M47.816 Spondylosis without myelopathy or radiculopathy, lumbar region; M46.1 Sacroiliitis, not elsewhere classified
CPT/HCPCS: 97110; 97161

== ENCOUNTER 2025-01-30 15:54 | Outpatient (AMB) | payer OTHER, SELFPAY ==
--- OUTSIDE RECORDS SUMMARY | 2025-01-30 15:57 | XMS_ITS | Clinical Summary ---
Author Organization [employer] Address [address] [facility] [address] [place] [address] Care Team Providers Care Aircraft Part Assembler Name Role Phone Unavailable Primary Care Provider [...] 1989 Lipid Panel 1989 SDOH Screening 1989 Disability Screening 1989 Alcohol/Substance Use Screening 2001 Family Planning (PISQ) 02/02/2004 HPV Vaccines (1 - Male 3-dos e series) 02/02/2004 Hepatitis C Screening 2007 DTaP/Tdap/Td Vaccines (1 - Tdap) 02/02/2008 Hepatitis B Vaccines (1 of 3 - 19+ 3-dose series) 02/02/2008 Pneumococcal Vaccine: Pediat rics (0 to 5 Years) and At-Risk Patients (6 to 49) Years (2 of 2 - PCV) 11/29/2011 11/28/2010 COVID-19 Vaccine ( - 2023-2 5 season) 2024 Tobacco Screening 05/05/2024 05/05/2023 Influenza Vaccine (#1) 2025 Zoster Vaccines (1 of 2) 2039 RSV [...] this topic Insurance [place] STAND ADULT DENTAL-[facility] MEDICAID STAND ADULT * Guarantor: Kojo Luz Jr Account Type Relation to Patient Date of Phone Billing Address Personal/Family Self [address]
--- OUTSIDE RECORDS SUMMARY | 2025-01-30 15:57 | XMS_ITS | Clinical Summary ---
Author Organization [facility] Address [address] [place] [address] Care Team Providers Care Fisher Eel Name Role Phone Unavailable Primary Care Provider [...] 02/02/2008 COVID-19 Vaccine (2023-2 5 season) 2024 Depression Screening 07/03/2024 Influenza Vaccine (#1) 2025 HIB Vaccines Aged Out No longer eligi [...] 5 Years) and At-Risk Patients (6 to 49 Years) Aged Out No longer eligible b ased on patient's age to complete this topic RSV Immunization Patients Un ari 20 months Aged Out No longer eligible b ased on patient's age to complete this topic Varicella Vaccines Aged Out No longer eligible based on patient's age to complete this topic
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
[2025-01-30 16:12] VITALS: BP 144/92; PULSE 102; TEMP 36.4; O2SAT 97; BMI 29.8
== END 2025-01-30 16:30 | disposition home or self-care (01) ==
LOC: HO.HMCH 15:55
PROVIDERS: PCP Internal Medicine; Visit Provider Internal Medicine
DX: R10.2 Pelvic and perineal pain (principal); G89.29 Other chronic pain; K21.9 Gastro-esophageal reflux disease without esophagitis; F11.11 Opioid abuse, in remission; F41.9 Anxiety disorder, unspecified; F33.9 Major depressive disorder, recurrent, unspecified; E66.9 Obesity, unspecified

== ENCOUNTER → 2025-01-30 15:54 | Outpatient (BNVA) | payer OTHER, SELFPAY | PROVIDERS: PCP Internal Medicine; Visit Provider Internal Medicine | DX: R10.2 Pelvic and perineal pain (principal); K21.9 Gastro-esophageal reflux disease without esophagitis; F11.11 Opioid abuse, in remission; F41.9 Anxiety disorder, unspecified; F33.9 Major depressive disorder, recurrent, unspecified; E66.9 Obesity, unspecified; Z68.29 Body mass index [BMI] 29.0-29.9, adult | CPT/HCPCS: 96127; 99212 ==

== ENCOUNTER 2025-04-23 11:43 | Outpatient (AMB) | payer OTHER, SELFPAY ==
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
[2025-04-23 11:46] VITALS: BP 148/79; PULSE 87; RESP 16; O2SAT 96; BMI 31.5
--- OUTSIDE RECORDS SUMMARY | 2025-04-23 16:24 | XMS_ITS | Encounter Summary ---
Author Organization [employer] Address [address] [facility] [address] [place] [address] Care Team Providers Care Wholesale Representative Name Role Phone Unavailable Primary Care Provider [...]
--- OUTSIDE RECORDS SUMMARY | 2025-04-23 16:24 | XMS_ITS | Clinical Summary ---
Author Organization [employer] Address [address] [facility] [address] [place] [address] Care Team Providers Care Science Tutor Name Role Phone Unavailable Primary Care Provider [...] (2 of 2 - PCV) 11/29/2011 11/28/2010 Tobacco Screening 05/05/2024 05/05/2023 COVID-19 Vaccine (1 - 2023-2 5 season) 2025 Influenza Vaccine (#1) 2025 Zoster Vaccines (1 [...] this topic Insurance DENTAL-[place]ICAID STAND ADULT DENTAL-[facility] MEDICAID STAND ADULT * Guarantor: Kojo Luz Jr Account Type Relation to Patient Date of Phone Billing Address Personal/Family Self [address]
--- OUTSIDE RECORDS SUMMARY | 2025-04-23 16:24 | XMS_ITS | Encounter Summary ---
Author Organization [email or web address] Address [address] [facility] [address] [place] [address] Care Team Providers Care Electrical Parts Reconditioner Name Role Phone Unavailable Primary Care Provider Unavailabl e Encounter Details Date Type Department Care Team (Late st Contact Info) Description 06/21/2022 Abstract [facility] ADULT DENTAL [address] [facility] [place] [address] Ji Jaime DDS [address] [place] [address] Social History Tobacco Use Types Packs/Day Years [...]
--- OUTSIDE RECORDS SUMMARY | 2025-04-23 16:24 | XMS_ITS | Encounter Summary ---
Author Organization [employer] Address [address] [facility] [address] [place] [address] Care Team Providers Care Die Tripper Name Role Phone Unavailable Primary Care Provider [...]
--- OUTSIDE RECORDS SUMMARY | 2025-04-23 16:24 | XMS_ITS | Clinical Summary ---
Author Organization [facility] Address [address] [place] [address] Care Team Providers Care Washing Machine Repairer Name Role Phone Unavailable Primary Care Provider [...] of 3 - 19+ 3-dose series) 02/02/2008 HPV Vaccines (1 - 3-dose SCD M series) 02/02/2016 Depression Screening 07/03/2024 COVID-19 Vaccine (1 - 2023-2 5 season) 2025 Influenza Vaccine (#1) 2025 RSV Immunization Adult Patie nts (1 - 1-dose 75+ series) 02/02/2064 HIB [...]
== END 2025-04-23 12:44 | disposition home or self-care (01) ==
PROVIDERS: PCP Internal Medicine; Visit Provider Anesthesiology
DX: R10.20 Pelvic and perineal pain unspecified side (principal); G89.29 Other chronic pain; M25.551 Pain in right hip; M25.552 Pain in left hip; M47.816 Spondylosis without myelopathy or radiculopathy, lumbar region; M54.50 Low back pain, unspecified; M46.1 Sacroiliitis, not elsewhere classified; M99.04 Segmental and somatic dysfunction of sacral region
CPT/HCPCS: 99214

== ENCOUNTER → 2025-04-23 11:43 | Outpatient (BNVA) | payer OTHER, SELFPAY | PROVIDERS: PCP Internal Medicine; Visit Provider Anesthesiology | DX: M25.551 Pain in right hip (principal); M25.552 Pain in left hip; G89.29 Other chronic pain; R10.20 Pelvic and perineal pain unspecified side; M47.816 Spondylosis without myelopathy or radiculopathy, lumbar region; M46.1 Sacroiliitis, not elsewhere classified; M99.04 Segmental and somatic dysfunction of sacral region; M54.50 Low back pain, unspecified | CPT/HCPCS: 99212 ==

== ENCOUNTER 2025-05-07 16:56 | Outpatient (AMB) | payer OTHER, SELFPAY ==
[2025-05-07 17:01] VITALS: BP 144/82; PULSE 139; O2SAT 98; BMI 31.2
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
--- OUTSIDE RECORDS SUMMARY | 2025-05-07 19:08 | XMS_ITS | Encounter Summary ---
Author Organization [employer] Address [address] [place] [address] Care Team Providers Care Lvn Name Role Phone Unavailable Primary Care Provider Unavailabl e Encounter Details Date Type Department Care Team (Late st Contact Info) Description 06/21/2022 Abstract [facility] [address] [facility] [place] [address] Ji Jaime DDS [address] [place] [address] Social History Tobacco Use Types Packs/Day Years [...]
--- OUTSIDE RECORDS SUMMARY | 2025-05-07 19:08 | XMS_ITS | Clinical Summary ---
Author Organization [employer] Address [address] [facility] [address] [place] [address] Care Team Providers Care Flavorings Compounder Name Role Phone Unavailable Primary Care Provider [...] this topic Insurance D[place]AL-[place] ST[place] AD[place] DENTAL-[facility] MEDICAID STAND ADULT * Guarantor: Kojo Luz Jr Account Type Relation to Patient Date of Phone Billing Address Personal/Family Self [address]
--- OUTSIDE RECORDS SUMMARY | 2025-05-07 19:08 | XMS_ITS | Encounter Summary ---
Author Organization [employer] Address [address] [facility] [address] [place] [address] Care Team Providers Care Teacher Kindergarten Name Role Phone Unavailable Primary Care Provider [...]
--- OUTSIDE RECORDS SUMMARY | 2025-05-07 19:08 | XMS_ITS | Encounter Summary ---
Author Organization [employer] Address [address] [facility] [address] [place] [address] Care Team Providers Care Fabric Awning Repairer Name Role Phone Unavailable Primary Care [...]
--- OUTSIDE RECORDS SUMMARY | 2025-05-07 19:08 | XMS_ITS | Clinical Summary ---
Author [facility] Address [address] [place] [address] Care Team Providers Care Farmer General Name Role Phone Unavailable Primary Care Provider [...]
== END 2025-05-07 17:28 | disposition home or self-care (01) ==
LOC: HO.HMCH 16:58
PROVIDERS: PCP Internal Medicine; Visit Provider Internal Medicine
DX: Z00.00 Encounter for general adult medical examination without abnormal findings (principal); R10.20 Pelvic and perineal pain unspecified side; G89.29 Other chronic pain; K21.9 Gastro-esophageal reflux disease without esophagitis; F11.11 Opioid abuse, in remission; F41.9 Anxiety disorder, unspecified; F33.9 Major depressive disorder, recurrent, unspecified; E66.9 Obesity, unspecified

== ENCOUNTER → 2025-05-07 16:56 | Outpatient (BNVA) | payer OTHER, SELFPAY | PROVIDERS: PCP Internal Medicine; Visit Provider Internal Medicine | DX: Z00.00 Encounter for general adult medical examination without abnormal findings (principal); R10.20 Pelvic and perineal pain unspecified side; G89.29 Other chronic pain; K21.9 Gastro-esophageal reflux disease without esophagitis; F11.11 Opioid abuse, in remission; F41.9 Anxiety disorder, unspecified | CPT/HCPCS: 96127; 99395 ==